=== PATIENT | female | born 1990 | race Caucasian/White ===

== ENCOUNTER 2016-05-18 15:13 | Emergency (ER) | payer MEDICARE, OTHER ==
[~2016-05-18 15:13] MED LIST: CEFD300C PO; DIAS12.5 PR; LAMO150 PO; ZONI1CAP26 PO; [UNRECOGNIZED DRUG - CODE] PO
[2016-05-18 15:14] VITALS: BP 118/62; PULSE 87; RESP 20; TEMP 98.2; O2SAT 98
--- NOTE | 2016-05-18 17:01 | PD ---
HPI Chief Complaint: Laceration/Skin Injury Time Seen by Provider: 16:57 Travel History International Travel<30 days: No Contact w/Intl Traveler<30days: No Traveled to known affect area: No History of Present Illness HPI 25-year-old female with history of CP, autism presents to the ED for evaluation of laceration of the forehead. This [facility] at her shelter. The vascular physician is at bedside and provides the history. She states the patient suffered a mechanical fall, fell, striking her head onto the carpeted floor. Denies loss of consciousness. She states the patient has been behaving in her usual fashion since the incident. She denies increased somnolence or headache complaint. She denies musculoskeletal complaint, limping or changes in the patient's normal gait. [facility] Past Medical History Developmental Delay: Yes Diminished Hearing: No Seizures: Yes Past Surgical History Hysterectomy: Yes Social History Alcohol Use: No Tobacco Use: No Substance Use: No Allergies-Medications (Allergen,Severity, Reaction): Coded Allergies: Sulfa (Verified Allergy, Severe, UNKNOWN, 05/18/16) Reported Meds & Prescriptions Reported Meds & Active Scripts Active No Active Prescriptions or Reported Medications Review of Systems Except as stated in HPI: all other systems reviewed are Neg Physical Exam Narrative GENERAL: Well-nourished, female with CP in no acute distress. SKIN: Warm and dry. There is a 1 cm superficial laceration in the midline of the hairline on the forehead. There is a 2 cm abrasion just left lateral of this. No tenderness to palpation. HEAD: Normocephalic. No bony step-offs of the skull. No tenderness to palpation. EYES: No scleral icterus. No injection or drainage. PERRLA. NECK: Supple, trachea midline. No JVD or lymphadenopathy. No midline tenderness to palpation. The patient retains full, active, painless motion of the neck. DENTAL: No malocclusion. CARDIOVASCULAR: Regular rate and rhythm without murmurs, gallops, or rubs. 2+ DP and radial pulses bilaterally. RESPIRATORY: Breath sounds clear and equal bilaterally. No accessory muscle use. GASTROINTESTINAL: Abdomen soft, non-tender, nondistended. Active bowel sounds. MUSCULOSKELETAL: No cyanosis, or edema. The patient wears braces on bilateral lower extremities. Congenital deformities 2/2 cerebral palsy. No tenderness to palpation of bilateral knees, ankles, feet. Patient is able to wiggle the toes of bilateral feet. Cap refill less than 2 seconds. Sensation intact to light touch distally. BACK: Nontender without obvious deformity. No CVA tenderness. Data Data Last Documented VS Vital Signs Date Time Temp Pulse Resp B/P Pulse Ox O2 Delivery O2 Flow Rate FiO2 05/18/16 15:14 98.2 87 20 118/62 98 MDM Medical Decision Making Medical Screen Exam Complete: Yes Emergency Medical Condition: Yes Differential Diagnosis Abrasion versus laceration versus closed head injury versus less likely ICH versus musculoskeletal pain versus ankle sprain versus ankle fracture versus other Narrative Course 25-year-old female with history of CP, autism presents to the ED for evaluation of laceration of the forehead. This was sustained at her shelter. The vascular physician is at bedside and provides the history. She states the patient suffered a mechanical fall, fell, striking her head onto the carpeted floor. Denies loss of consciousness. She states the patient has been behaving in her usual fashion since the incident. She denies increased somnolence or headache complaint. She denies musculoskeletal complaint, limping or changes in the patient's normal gait. Vitals reviewed. Physical exam reveals an alert female in no acute distress. She responds appropriately to commands. There is a centimeter laceration in the hairline of the forehead and a 2 cm abrasion just left lateral to this. No tenderness to palpation. No bony step-offs of the skull. PERRLA. No malocclusion of the teeth. No midline tenderness to palpation of the cervical spine. Patient retains active, full, painless ROM of the neck. No tenderness to palpation of the bilateral hips, femurs, knees, lower legs, ankles, feet. 2+ DP pulses bilaterally. The patient is able to wiggle the toes bilaterally. The patient rules out for radiological studies from [place] [facility] rules. However, I discussed the possibility of skull fracture or ICH with the caregiver. I discussed watchful waiting versus CT scan of the brain. At this time the caregiver defers CT scan. We discussed reasons to return the ED. The patient's caregiver was instructed to keep the abrasions clean and dry, monitor the patient for changes in normal behavior, headache complaint. She indicated understanding of the instructions and is amenable to the plan of care. This patient is stable and discharged home. Diagnosis Primary Impression: Abrasion head Additional Impression: Superficial laceration of scalp Qualified Code: S01.01XA - Superficial laceration of scalp, initial encounter Referrals: Primary Care Physician Patient Instructions: General Instructions, Laceration Without Closure (ED) Additional Instructions: Rest, hydrate. Keep the abrasion and laceration clean and dry. Continue to monitor the patient for changes in normal behavior, headaches. Follow-up with the primary care provider this week. Return to the ED for worsening of symptoms or any urgent or emergent medical condition. Scripts No Active Prescriptions or Reported Meds Disposition: 01 DISCHARGE HOME Condition: Stable Yesika Dodge May 18, 2016 17:01
== END 2016-05-18 17:34 | disposition home or self-care (01) ==
LOC: NEPB 15:13
DX: S01.81XA Laceration without foreign body of other part of head, initial encounter (principal); W19.XXXA Unspecified fall, initial encounter
CPT/HCPCS: 99283